=== PATIENT | male | born 1955 | race Caucasian/White ===

== ENCOUNTER 2022-05-26 11:12 | Outpatient (CLI) | payer MEDICARE, BC, SELFPAY ==
[2022-05-26 21:31] LABS: Chloride* 96 mmol/L (96-114); Sodium* 137 mmol/L (135-149)
[2022-05-26 21:32] LABS: Potassium* 3.7 mmol/L (3.6-5.1)
[2022-05-26 21:34] LABS: Carbon Dioxide* 31 mmol/L (20-32); Creatinine* 1.7 mg/dL (0.5-1.5); Estimated Glomerular Filt Rate 44 ml/min
[2022-05-26 21:35] LABS: Blood Urea Nitrogen* 66 mg/dL (7-30); Calcium* 9.2 mg/dL (8.4-10.6); Glucose* 150 mg/dL (60-115)
== END 2022-05-26 11:13 | disposition home or self-care (01) ==
LOC: FRMREF 11:13
PROVIDERS: PCP Family Medicine; Visit Provider Family Medicine
DX: K92.2 Gastrointestinal hemorrhage, unspecified (principal); Z51.81 Encounter for therapeutic drug level monitoring
CPT/HCPCS: 80048

== ENCOUNTER 2022-05-29 10:00 | Outpatient (RCR) | payer MEDICARE, BC, SELFPAY ==
[2022-05-22 11:27] VITALS: BP 131/76; PULSE 88; RESP 16; TEMP 36.7; O2SAT 96
[2022-05-22] MEDS: ferumoxytoL 510 MG in 0.9 % SODIUM CHLORIDE 250 ml 250 ML 1068 MG IVPB (12:07)
--- NOTE | 2022-05-25 15:30 | ONC.NURNOTE ---
Authorization: User: Shital NicoleRon Donovan Date: 02/04/22 12:49 Type: Eligibility Determination Note... Received request for prior auth for Rosendo([id number]). Pt has Medicare/[employer]. Prior auth is not required. Services are based on medical necessity and follow medicare guidelines. User: Vilma Allison Date: 03/06/22 06:58 Type: Eligibility Determination Note... Request received from [facility] for prior authorization of increased dosing of Aranesp [id number]. Patient carries Medicare as primary insurance. Per CMS.gov no prior authorization is required for Aranesp. Services are based on medical necessity and follow Medicare guidelines.
[2022-05-29 10:06] VITALS: BP 118/56; PULSE 87; RESP 16; TEMP 36.3; O2SAT 99
[2022-05-29] MEDS: ferumoxytoL 510 MG in 0.9 % SODIUM CHLORIDE 250 ml 250 ML 1068 MG IVPB (10:34)
== END 2022-05-31 23:59 | disposition home or self-care (01) ==
LOC: CCIC 10:00
PROVIDERS: PCP Family Medicine; Visit Provider Clinical Nurse Specialist
DX: D64.9 Anemia, unspecified (principal)
CPT/HCPCS: 96365; 96372; 96374; J0881; J7050; Q0138

== ENCOUNTER 2022-09-18 10:30 | Outpatient (RCR) | payer MEDICARE, BC, SELFPAY ==
[2022-06-26 10:57] VITALS: BP 127/70; PULSE 117; RESP 16; TEMP 36.9; O2SAT 96
[2022-06-26 11:26] LABS: Basophils Absolute Auto 0.05 K/uL (0.00-0.30); Basophils Percent Auto 0.7 % (0.0-3.0); Eosinophils Percent Auto 7.5 % (0.0-7.0); Hematocrit 31.5 % (37.0-53.0); Hemoglobin* 10.2 gm/dL (13.5-17.5); Immature Granulocytes Abs Auto 0.02 K/uL (0.00-0.30); Lymphocytes Percent Auto 12.4 % (20-44); Mean Corpuscular HGB Conc 32 gm/dL (32-36); Mean Corpuscular Hemoglobin 29 pg (26-34); Mean Corpuscular Volume 88 fL (80-100); Monocytes Percent Auto 6.7 % (0.0-11.0); Neutrophils Percent Auto 72.4 % (42.0-72.0); Platelet Count* 149 K/uL (140-440); Red Blood Count 3.58 m/uL (4.30-5.90); White Blood Count* 7.61 K/uL (4.50-11.00)
[2022-06-26 11:55] LABS: Slide Review Reflex No
--- NOTE | 2022-06-26 15:06 | ONC.NURNOTE ---
Pt here for aranesp, hgb 10.2, no aranesp needed. Pt doing well, c/o fatigue.
[2022-07-24 11:03] LABS: Basophils Absolute Auto 0.04 K/uL (0.00-0.30); Basophils Percent Auto 0.5 % (0.0-3.0); Eosinophils Absolute Auto 0.45 K/uL (0.00-0.50); Eosinophils Percent Auto 5.5 % (0.0-7.0); Hematocrit 31.5 % (37.0-53.0); Hemoglobin* 10.1 gm/dL (13.5-17.5); Immature Granulocytes Abs Auto 0.01 K/uL (0.00-0.30); Lymphocytes Percent Auto 14.5 % (20-44); Mean Corpuscular HGB Conc 32 gm/dL (32-36); Mean Corpuscular Hemoglobin 28 pg (26-34); Mean Corpuscular Volume 88 fL (80-100); Monocytes Percent Auto 7.5 % (0.0-11.0); Neutrophils Absolute Auto 5.85 K/uL (1.7-7.0); Neutrophils Percent Auto 71.9 % (42.0-72.0); Platelet Count* 131 K/uL (140-440); RDW Coefficient of Variation % 16.5 % (11.5-15.5); Red Blood Count 3.59 m/uL (4.30-5.90); White Blood Count* 8.14 K/uL (4.50-11.00)
[2022-07-24 11:14] LABS: Slide Review Reflex No
[2022-08-21 11:06] LABS: Basophils Absolute Auto 0.07 K/uL (0.00-0.30); Basophils Percent Auto 0.7 % (0.0-3.0); Eosinophils Absolute Auto 0.46 K/uL (0.00-0.50); Eosinophils Percent Auto 4.7 % (0.0-7.0); Hematocrit 31.9 % (37.0-53.0); Hemoglobin* 10.4 gm/dL (13.5-17.5); Immature Granulocytes Abs Auto 0.02 K/uL (0.00-0.30); Mean Corpuscular HGB Conc 33 gm/dL (32-36); Mean Corpuscular Hemoglobin 28 pg (26-34); Mean Corpuscular Volume 87 fL (80-100); Monocytes Percent Auto 6.5 % (0.0-11.0); Neutrophils Percent Auto 73.9 % (42.0-72.0); Platelet Count* 145 K/uL (140-440); RDW Coefficient of Variation % 16.6 % (11.5-15.5); Red Blood Count 3.68 m/uL (4.30-5.90); White Blood Count* 9.85 K/uL (4.50-11.00)
[2022-08-21 11:40] LABS: Slide Review Reflex Yes
[2022-08-21 11:41] LABS: Slide Review Acceptable Review (Acceptable)
== END 2022-12-23 23:59 | disposition home or self-care (01) ==
LOC: CCIC 10:30
PROVIDERS: PCP Family Medicine; Referring Provider Family Medicine; Visit Provider Clinical Nurse Specialist
DX: D64.9 Anemia, unspecified (principal)
CPT/HCPCS: 36415; 85025

== ENCOUNTER 2023-02-18 13:02 | Outpatient (CLI) | payer MEDICARE, BC, SELFPAY | END 2023-02-18 13:03 | disposition home or self-care (01) | LOC: FRMREF 13:04 | PROVIDERS: PCP Physician Assistant Medical; Visit Provider Physician Assistant Medical | DX: E78.5 Hyperlipidemia, unspecified (principal); E66.9 Obesity, unspecified; M10.9 Gout, unspecified; N18.4 Chronic kidney disease, stage 4 (severe); I10 Essential (primary) hypertension; E11.40 Type 2 diabetes mellitus with diabetic neuropathy, unspecified; Z51.81 Encounter for therapeutic drug level monitoring; D64.9 Anemia, unspecified; Z79.4 Long term (current) use of insulin | CPT/HCPCS: 80053; 82728; 83540; 83550 ==

== ENCOUNTER 2023-03-23 11:00 | Outpatient (RCR) | payer MEDICARE, BC, SELFPAY ==
--- NOTE | 2023-02-15 12:11 | ONC.NURNOTE ---
Addendum entered by Kendra Oquendo RN 02/16/23 08:02: Patient called office back stating that he has not been feeling well. He was instructed to be seen by his PCP to be assessed. He was also made aware that Dr. Parikh was the previous ordering provider, and that he should contact his office for more orders after being checked out by PCP to be sure nothing else is going on. Original Note: Patient left message asking for appointment to come in for blood test. Patients orders on 12/14/2022. LMOM for patient to have new orders sent to office, and we would be happy to help him out.
--- NOTE | 2023-03-03 10:39 | URNOTE ---
Request received for authorization for?Iron Sucrose (Venofer) ([id number]). Prior authorization is not required as services are based on medical necessity and follow Medicare guidelines.
--- NOTE | 2023-03-03 12:46 | URNOTE ---
Addendum entered by Kendra Oquendo RN 03/03/23 13:41: Computer Hardware Developer noted that this was submitted on the wrong patient, please disregard at this time. Original Note: Request received for authorization forSmita ([id number]). Prior authorization is not required as services are based on medical necessity and follow Medicare guidelines.
--- NOTE | 2023-03-03 13:41 | ONC.NURNOTE ---
Dx: JOSE ALEJANDRO in CKD
[2023-03-09 12:04] VITALS: BP 137/78; PULSE 73; RESP 16; TEMP 36.8; O2SAT 99
[2023-03-09] MEDS: IRON SUCROSE COMPLEX 200 MG in 0.9 % SODIUM CHLORIDE 100 ml 100 ML 440 MG IVPB (12:30)
[2023-03-09] MEDS: SODIUM CHLORIDE 0.9 % (FLUSH) 10 ML SYRINGE IVF (12:33)
[2023-03-09] MEDS: 0.9 % SODIUM CHLORIDE 250 ml IV (12:33)
[2023-03-09 13:11] VITALS: BP 112/73
[2023-03-12] MEDS: IRON SUCROSE COMPLEX 200 MG in 0.9 % SODIUM CHLORIDE 100 ml 100 ML 440 MG IVPB (11:43)
[2023-03-12] MEDS: SODIUM CHLORIDE 0.9 % (FLUSH) 10 ML SYRINGE IVF (11:44)
[2023-03-12] MEDS: 0.9 % SODIUM CHLORIDE 250 ml IV (11:44)
[2023-03-12 11:59] VITALS: BP 108/60; PULSE 76; RESP 14; TEMP 36.3; O2SAT 98
[2023-03-12 12:36] VITALS: BP 132/86; PULSE 62; RESP 18; TEMP 36.2; O2SAT 94
[2023-03-16 11:11] VITALS: BP 109/69; PULSE 90; RESP 16; TEMP 36.2; O2SAT 96
[2023-03-16] MEDS: IRON SUCROSE COMPLEX 200 MG in 0.9 % SODIUM CHLORIDE 100 ml 100 ML 440 MG IVPB (11:42)
[2023-03-16 12:32] VITALS: BP 114/68; PULSE 60; RESP 16; TEMP 36.3; O2SAT 96
[2023-03-16] MEDS: 0.9 % SODIUM CHLORIDE 250 ml IV (15:33)
[2023-03-16] MEDS: SODIUM CHLORIDE 0.9 % (FLUSH) 10 ML SYRINGE IVF (15:33)
[2023-03-19 10:57] VITALS: BP 123/75; PULSE 87; RESP 16; TEMP 36; O2SAT 99
[2023-03-19] MEDS: IRON SUCROSE COMPLEX 200 MG in 0.9 % SODIUM CHLORIDE 100 ml 100 ML 440 MG IVPB (11:21)
[2023-03-19] MEDS: 0.9 % SODIUM CHLORIDE 250 ml IV (11:22)
[2023-03-19] MEDS: SODIUM CHLORIDE 0.9 % (FLUSH) 10 ML SYRINGE IVF (11:22)
[2023-03-23 11:33] VITALS: BP 136/83; PULSE 89; RESP 16; TEMP 36.6; O2SAT 97
[2023-03-23] MEDS: SODIUM CHLORIDE 0.9 % (FLUSH) 10 ML SYRINGE IVF (12:04)
[2023-03-23] MEDS: IRON SUCROSE COMPLEX 200 MG in 0.9 % SODIUM CHLORIDE 100 ml 100 ML 440 MG IVPB (12:04)
[2023-03-23] MEDS: 0.9 % SODIUM CHLORIDE 250 ml IV (12:04)
[2023-03-23 13:05] VITALS: BP 100/62; PULSE 60; RESP 18; O2SAT 96
== END 2023-09-05 23:59 | disposition home or self-care (01) ==
LOC: CCIC 11:00
PROVIDERS: PCP Physician Assistant Medical; Referring Provider Family Medicine; Visit Provider Clinical Nurse Specialist
DX: D64.9 Anemia, unspecified (principal)
CPT/HCPCS: 96365; 96374; J1756; J7050

== ENCOUNTER 2024-02-22 20:58 | Outpatient (CLI) | payer MEDICARE, BC, SELFPAY | END 2024-02-22 20:59 | disposition home or self-care (01) | PROVIDERS: Visit Provider Internal Medicine | DX: G47.33 Obstructive sleep apnea (adult) (pediatric) (principal) | CPT/HCPCS: 95811 ==

== ENCOUNTER 2025-09-17 12:43 | Outpatient (CLI) | payer MEDICARE, BC, SELFPAY | END 2025-09-17 12:44 | disposition home or self-care (01) | LOC: WOUND 13:06 | PROVIDERS: PCP Family Medicine; Visit Provider Physician Assistant Surgical | DX: S81.812A Laceration without foreign body, left lower leg, initial encounter (principal); S80.211A Abrasion, right knee, initial encounter; W22.8XXA Striking against or struck by other objects, initial encounter; E11.9 Type 2 diabetes mellitus without complications; Z79.84 Long term (current) use of oral hypoglycemic drugs; D50.9 Iron deficiency anemia, unspecified; R60.0 Localized edema; I25.10 Atherosclerotic heart disease of native coronary artery without angina pectoris; N18.4 Chronic kidney disease, stage 4 (severe); I13.0 Hypertensive heart and chronic kidney disease with heart failure and stage 1 through stage 4 chronic kidney disease, or unspecified chronic kidney disease; I50.32 Chronic diastolic (congestive) heart failure; F17.200 Nicotine dependence, unspecified, uncomplicated; G47.33 Obstructive sleep apnea (adult) (pediatric) | CPT/HCPCS: 11042; G0463 ==

== ENCOUNTER 2025-09-24 13:59 | Outpatient (CLI) | payer MEDICARE, BC, SELFPAY | END 2025-09-24 14:00 | disposition home or self-care (01) | LOC: WOUND 13:59 | PROVIDERS: PCP Family Medicine; Visit Provider Nurse Practitioner Family | DX: S80.811A Abrasion, right lower leg, initial encounter (principal); D50.9 Iron deficiency anemia, unspecified; I48.21 Permanent atrial fibrillation; E11.22 Type 2 diabetes mellitus with diabetic chronic kidney disease; N18.4 Chronic kidney disease, stage 4 (severe); Z79.84 Long term (current) use of oral hypoglycemic drugs | CPT/HCPCS: G0463 ==